=== PATIENT | female | born 1995 | race Caucasian/White ===

== ENCOUNTER 2018-06-08 16:22 | Inpatient (IN) | payer BC, OTHER ==
[~2018-06-08] VITALS: Ht 162.6 cm; Wt 63.5 kg
[2018-06-08] MEDS ORDERED: ONDANSETRON 4 MG/2 ML (SDV) Z0FRAN ONE (16:38)
--- NOTE | 2018-06-08 16:40 | ED GU-Female ---
General Stated Complaint: KIDNEY STONE Source: patient Exam Limitations: no limitations History of Present Illness Date Seen by Provider: Jun 08, 2018 Time Seen by Provider: 16:39 Initial Comments To ER with reports of left flank pain that awakened her from sleep at 4:30 AM this morning. Earlier this week she thought she might have a bladder infection because she was having urinary frequency and burning on urination. She began to drink more cranberry juice and those symptoms resolved. She did have a fever earlier today up to a maximum 99.7. No nausea or vomiting. She saw her primary care provider Shonda English who told her she may have a kidney stone and referred her here. She just left his office. Timing/Duration: just prior to arrival Severity/Quality: moderate Location: left flank Radiation: left flank Prior Genitourinary Problems: none Associated Symptoms: dysuria, urinary frequency Allergies and Home Medications Allergies Coded Allergies: No Known Drug Allergies (Unverified , 06/08/18) Home Medications No Active Prescriptions or Reported Meds Patient Home Medication List Home Medication List Reviewed: Yes Review of Systems Review of Systems Constitutional: see HPI, chills, fever EENTM: see HPI Respiratory: no symptoms reported Cardiovascular: no symptoms reported Genitourinary: see HPI, dysuria, flank pain Musculoskeletal: no symptoms reported Skin: no symptoms reported Psychiatric/Neurological: No Symptoms Reported Physical Exam Vital Signs Vital Signs - First Documented 06/08/18 06/08/18 16:38 19:40 Temp 97.9 Pulse 103 Resp 18 B/P (MAP) 114/68 (83) Pulse Ox 100 O2 Delivery Room Air Capillary Refill : Height, Weight, BMI Height: '" Weight: lbs. oz. kg; BMI Method: General Appearance: WD/WN, no apparent distress HEENT: PERRL/EOMI, normal ENT inspection Neck: non-tender, full range of motion Respiratory: no respiratory distress, no accessory muscle use Gastrointestinal: normal bowel sounds, non tender, soft Back: CVA tenderness (L) Extremities: normal range of motion, non-tender, normal inspection Neurologic/Psychiatric: alert, normal mood/affect, oriented x 3 Skin: normal color, warm/dry Focused Exam Lactate Level 06/08/18 17:29: Lactic Acid Level 1.93 Lactic Acid Level Progress/Results/Core Measures Suspected Sepsis SIRS Temperature: Pulse: Respiratory Rate: Laboratory Tests 06/08/18 16:30: White Blood Count 20.2H Blood Pressure / Mean: 06/08/18 17:29: Lactic Acid Level 1.93 Laboratory Tests 06/08/18 16:30: Creatinine 0.81, Platelet Count 182, Total Bilirubin 1.1H Results/Orders Lab Results Laboratory Tests Test 06/08/18 16:30 06/08/18 16:55 06/08/18 17:29 Range/Units White Blood Count 20.2 H 4.3-11.0 10^3/uL Red Blood Count 4.76 4.35-5.85 10^6/uL Hemoglobin 15.2 11.5-16.0 G/DL Hematocrit 43 35-52 % Mean Corpuscular Volume 90 80-99 FL Mean Corpuscular Hemoglobin 32 25-34 PG Mean Corpuscular Hemoglobin Concent 35 32-36 G/DL Red Cell Distribution Width 12.2 10.0-14.5 % Platelet Count 182 130-400 10^3/uL Mean Platelet Volume 10.0 7.4-10.4 FL Neutrophils (%) (Auto) 91 H 42-75 % Lymphocytes (%) (Auto) 3 L 12-44 % Monocytes (%) (Auto) 6 0-12 % Eosinophils (%) (Auto) 0 0-10 % Basophils (%) (Auto) 0 0-10 % Neutrophils # (Auto) 18.3 H 1.8-7.8 X 10^3 Lymphocytes # (Auto) 0.6 L 1.0-4.0 X 10^3 Monocytes # (Auto) 1.3 H 0.0-1.0 X 10^3 Eosinophils # (Auto) 0.0 0.0-0.3 10^3/uL Basophils # (Auto) 0.0 0.0-0.1 10^3/uL Neutrophils % (Manual) 82 % Lymphocytes % (Manual) 5 % Monocytes % (Manual) 6 % Eosinophils % (Manual) 0 % Basophils % (Manual) 0 % Band Neutrophils 7 % Blood Morphology Comment NORMAL Sodium Level 132 L 135-145 MMOL/L Potassium Level 4.0 3.6-5.0 MMOL/L Chloride Level 103 98-107 MMOL/L Carbon Dioxide Level 18 L 21-32 MMOL/L Anion Gap 11 5-14 MMOL/L Blood Urea Nitrogen 9 7-18 MG/DL Creatinine 0.81 0.60-1.30 MG/DL Estimat Glomerular Filtration Rate > 60 BUN/Creatinine Ratio 11 Glucose Level 136 H 70-105 MG/DL Calcium Level 9.1 8.5-10.1 MG/DL Corrected Calcium 8.8 8.5-10.1 MG/DL Total Bilirubin 1.1 H 0.1-1.0 MG/DL Aspartate Amino Transf (AST/SGOT) 20 5-34 U/L Alanine Aminotransferase (ALT/SGPT) 14 0-55 U/L Alkaline Phosphatase 67 40-136 U/L Total Protein 7.5 6.4-8.2 GM/DL Albumin 4.4 3.2-4.5 GM/DL Urine Color GALEN H Urine Clarity SLIGHTLY CLOUDY Urine pH 5 5-9 Urine Specific [place] 1.020 1.016-1.022 Urine Protein 2+ H NEGATIVE Urine Glucose (UA) NEGATIVE NEGATIVE Urine Ketones NEGATIVE NEGATIVE Urine Nitrite NEGATIVE NEGATIVE Urine Bilirubin NEGATIVE NEGATIVE Urine Urobilinogen NORMAL NORMAL MG/DL Urine Leukocyte Esterase 3+ H NEGATIVE Urine RBC (Auto) 5+ H NEGATIVE Urine RBC 5-10 H /HPF Urine WBC 50-100 H /HPF Urine Squamous Epithelial Cells 25-50 H /HPF Urine Crystals NONE /LPF Urine Bacteria FEW H /HPF Urine Casts NONE /LPF Urine Mucus NEGATIVE /LPF Urine Culture Indicated YES Lactic Acid Level 1.93 0.50-2.00 MMOL/L My Orders Orders - JUVENAL BALL APRN Ua Culture If Indicated (06/08/18 16:32) Cbc With Automated Diff (06/08/18 16:32) Comprehensive Metabolic Panel (06/08/18 16:32) Iv Heplock-Insert (Order) (06/08/18 16:32) Ct Abd/Pelvis Wo(Kidney Stone) (06/08/18 16:32) Ketorolac Injection (Toradol Injection) (06/08/18 16:45) Ns Iv 1000 Ml (Sodium Chloride 0.9%) (06/08/18 16:45) Urine Bedside (06/08/18 16:32) Ondansetron Injection (Zofran Injectio (06/08/18 16:45) Ondansetron Injection (Zofran Injectio (06/08/18 16:38) Manual Differential (06/08/18 16:30) Blood Culture (06/08/18 16:57) Lactic Acid Analyzer (06/08/18 16:57) Urine Culture (06/08/18 16:55) Ceftriaxone For Iv Use (Rocephin For I (06/08/18 17:30) Us Non Ob Pelvis Comp/Transvag (06/08/18 17:53) Medications Given in ED Current Medications Medications Dose Ordered Sig/Sofya Route Start Time Stop Time Status Last Admin Dose Admin Ceftriaxone Sodium 1000 mg/ Sodium Chloride 50 ml @ 100 mls/hr ONCE ONCE IV 06/08/18 17:30 06/08/18 17:59 DC 06/08/18 17:47 100 MLS/HR Ketorolac Tromethamine 30 mg ONCE ONCE IVP 06/08/18 16:45 06/08/18 16:46 DC 06/08/18 16:45 30 MG Ondansetron HCl 4 mg ONCE ONCE IVP 06/08/18 16:45 06/08/18 16:46 DC 06/08/18 16:45 4 MG Vital Signs/I&O 06/08/18 06/08/18 06/08/18 06/08/18 16:38 19:40 19:40 19:45 Temp 97.9 99.5 Pulse 103 88 98 Resp 18 18 18 B/P (MAP) 114/68 (83) 110/60 (83) 104/66 (79) Pulse Ox 100 100 98 O2 Delivery Room Air Room Air 06/08/18 21:38 Pulse 99 Capillary Refill : Diagnostic Imaging Diagonstic Imaging: Xray Comments NAME: KAYKAY HUA [facility] REC#: [id number] PT STATUS: REG ER : 1995 PHYSICIAN: JUVENAL BALL APRN ADMIT DATE: 06/08/18/ER Draft Date of Exam:06/08/18 CT ABD/PELVIS WO(KIDNEY STONE) PROCEDURE: CT urinary tract, rule out kidney stone. TECHNIQUE: Multiple contiguous axial images were obtained through the abdomen and pelvis without the use of intravenous contrast. INDICATION: Onset of left flank pain today, hematuria. CORRELATION STUDY: None. FINDINGS: LOWER THORAX: Clear. LIVER: Unremarkable. GALLBLADDER: Slightly contracted, otherwise unremarkable. SPLEEN: Unremarkable. PANCREAS: Unremarkable. ADRENAL GLANDS: Unremarkable. KIDNEYS: 3 cm rounded low-density mass in the inferior pole of the left kidney most compatible with a cyst. Kidneys and collecting systems are otherwise unremarkable. No definitive calcification. Ureters cannot be completely traced but without evidence of unexpected calcification along their course. ABDOMINAL AORTA: Appearing relatively normal in contour. There are few prominent central retroperitoneal and a few scattered mesenteric lymph nodes. GASTROINTESTINAL TRACT: Stomach is distended with moderate amount of retained gastric contents. No evidence for small bowel obstruction. Mild severity fecal retention throughout the colon. What appears to be portion of the appendix has an unremarkable appearance. URINARY BLADDER: Relatively decompressed not well evaluated. REPRODUCTIVE: There is presence of a small amount of pelvic fluid. Intrauterine contraceptive device is present. Low-density left adnexal mass measures 3.5 cm most compatible with a cyst. OSSEOUS STRUCTURES: There is either a left hemilaminotomy defect at the L5 level versus a spina bifida occulta defect with additional spina bifida occulta defect at S1. OTHER: None. IMPRESSION: 1. No findings to suggest nephroureterolithiasis or obstructive uropathy. 2. Probable left renal cyst. 3. Left adnexal cyst likely associated with left ovary. There is presence of pelvic fluid. Given the presenting symptoms and overall findings, pelvic sonogram would be recommended for further assessment and to document appropriate blood flow to the left ovary. Dictated on workstation # [id number] Dict: 06/08/18 1716 Trans: 06/08/18 1751 [id number] Interpreted by: VARSHA EATON DO Electronically signed by: Departure Communication (Admissions) Spoke with Dr. De La Torre. We will admit observation status Rocephin fluids and repeat labs in the morning. Impression Primary Impression: Pyelonephritis Additional Impression: Sepsis Disposition: 01 HOME, SELF-CARE Condition: Stable Admissions Decision to Admit Reason: Admit from ER (General) Decision to Admit/Date: Jun 08, 2018 Time/Decision to Admit Time: 22:37 Departure-Patient Inst. Scripts No Active Prescriptions or Reported Meds JUVENAL BALL APRN Jun 08, 2018 16:40
[2018-06-08 16:44] LABS: BASOPHILS % (AUTO) 0 % (0-10); EOSINOPHILS % (AUTO) 0 % (0-10); HEMATOCRIT 43 % (35-52); HEMOGLOBIN 15.2 G/DL (11.5-16.0); LYMPHOCYTES # (AUTO) 0.6 X 10^3 (1.0-4.0); LYMPHOCYTES % (AUTO) 3 % (12-44); MEAN CORPUSCULAR HEMOGLOBIN 32 PG (25-34); MEAN CORPUSCULAR HGB CONC 35 G/DL (32-36); MEAN CORPUSCULAR VOLUME 90 FL (80-99); MONOCYTES # (AUTO) 1.3 X 10^3 (0.0-1.0); MONOCYTES % (AUTO) 6 % (0-12); NEUTROPHILS # (AUTO) 18.3 X 10^3 (1.8-7.8); NEUTROPHILS % (AUTO) 91 % (42-75); PLATELET COUNT 182 10^3/uL (130-400); RED BLOOD COUNT 4.76 10^6/uL (4.35-5.85); RED CELL DISTRIBUTION WIDTH 12.2 % (10.0-14.5); WHITE BLOOD COUNT 20.2 10^3/uL (4.3-11.0)
[2018-06-08] MEDS ORDERED: ONDANSETRON 4 MG/2 ML (SDV) Z0FRAN IVP ONE (16:45)
[2018-06-08] MEDS ORDERED: KETOROLAC 30 MG/ML VIAL IVP ONE (16:45)
[2018-06-08] MEDS ORDERED: NS IV 1000 ML 1,000 ML IV SCH (16:45)
[2018-06-08 16:58] LABS: BAND NEUTROPHILS 7 %; BASOPHILS % (MANUAL) 0 %; EOSINOPHILS % (MANUAL) 0 %; LYMPHOCYTES % (MANUAL) 5 %; MONOCYTES % (MANUAL) 6 %; NEUTROPHILS % (MANUAL) 82 %; RBC MORPH NORMAL
[2018-06-08 17:04] LABS: ALANINE AMINOTRANSFERASE 14 U/L (0-55); ALBUMIN 4.4 GM/DL (3.2-4.5); ALKALINE PHOSPHATASE 67 U/L (40-136); BILIRUBIN,TOTAL 1.1 MG/DL (0.1-1.0); BUN/CREATININE RATIO 11; CALCIUM 9.1 MG/DL (8.5-10.1); CARBON DIOXIDE 18 MMOL/L (21-32); CHLORIDE 103 MMOL/L (98-107); CREATININE SERUM 0.81 MG/DL (0.60-1.30); GFR ESTIMATED > 60; GLUCOSE 136 MG/DL (70-105); SODIUM 132 MMOL/L (135-145); TOTAL PROTEIN 7.5 GM/DL (6.4-8.2)
[2018-06-08 17:11] LABS: BILIRUBIN,URINE NEGATIVE (NEGATIVE); CLARITY,URINE SLIGHTLY CLOUDY; COLOR,URINE AMBER; GLUCOSE, URINE (UA) NEGATIVE (NEGATIVE); KETONES,URINE NEGATIVE (NEGATIVE); LEUKOCYTE ESTERASE ,URINE 3+ (NEGATIVE); NITRITE,URINE NEGATIVE (NEGATIVE); PH,URINE 5 (5-9); PROTEIN,URINE 2+ (NEGATIVE); UROBILINOGEN,URINE NORMAL (NORMAL)
[2018-06-08 17:21] LABS: BACTERIA,URINE FEW /HPF; SQUAMOUS EPITHELIAL CELL,UR 25-50 /HPF; WBC,URINE 50-100 /HPF
[2018-06-08] MEDS ORDERED: cefTRIAXone FOR IV USE 1,000 MG in NS (IVPB) 50 ML IV ONE (17:30)
--- NOTE | 2018-06-08 17:51 | Diagnostic Imaging Report ---
PROCEDURE: CT urinary tract, rule out kidney stone. TECHNIQUE: Multiple contiguous axial images were obtained through the abdomen and pelvis without the use of intravenous contrast. INDICATION: Onset of left flank pain today, hematuria. CORRELATION STUDY: None. FINDINGS: LOWER THORAX: Clear. LIVER: Unremarkable. GALLBLADDER: Slightly contracted, otherwise unremarkable. SPLEEN: Unremarkable. PANCREAS: Unremarkable. ADRENAL GLANDS: Unremarkable. KIDNEYS: 3 cm rounded low-density mass in the inferior pole of the left kidney most compatible with a cyst. Kidneys and collecting systems are otherwise unremarkable. No definitive calcification. Ureters cannot be completely traced but without evidence of unexpected calcification along their course. ABDOMINAL AORTA: Appearing relatively normal in contour. There are few prominent central retroperitoneal and a few scattered mesenteric lymph nodes. GASTROINTESTINAL TRACT: Stomach is distended with moderate amount of retained gastric contents. No evidence for small bowel obstruction. Mild severity fecal retention throughout the colon. What appears to be portion of the appendix has an unremarkable appearance. URINARY BLADDER: Relatively decompressed not well evaluated. REPRODUCTIVE: There is presence of a small amount of pelvic fluid. Intrauterine contraceptive device is present. Low-density left adnexal mass measures 3.5 cm most compatible with a cyst. OSSEOUS STRUCTURES: There is either a left hemilaminectomy defect at the L5 level versus a spina bifida occulta defect with additional spina bifida occulta defect at S1. OTHER: None. IMPRESSION: 1. No findings to suggest nephroureterolithiasis or obstructive uropathy. 2. Probable left renal cyst. 3. Left adnexal cyst likely associated with left ovary. There is presence of pelvic fluid. Given the presenting symptoms and overall findings, pelvic sonogram would be recommended for further assessment and to document appropriate blood flow to the left ovary. Dictated by: Dictated on workstation # [id number]
--- NOTE | 2018-06-08 19:11 | Diagnostic Imaging Report ---
INDICATION: Left flank pain, hematuria. TECHNIQUE: Multiple real time spears scale sonographic images were obtained of the pelvis transabdominally and transvaginally. CORRELATION STUDY: None FINDINGS: UTERUS/ENDOMETRIUM: Uterus measures 7.8 x 4.9 x 3.4 cm. Endometrial thickness is 7 mm. Intrauterine contraceptive device is present. RIGHT OVARY: 3.3 x 2.6 x 1.7 cm. Unremarkable. No mass. Normal blood flow. LEFT OVARY: 5.9 x 3.5 x 4.2 cm. There is a hypoechoic septated complex cystic mass associated with the left ovary at 3.1 x 2.3 x 3.2 cm. Additional 19 mm perhaps paraovarian cyst present as well. Blood flow is demonstrated to the left ovary. There is presence of pelvic fluid. IMPRESSION: 1. Approximately 3 cm complex left ovarian cyst. This may be physiologic. However, would recommend followup evaluation be obtained after approximately 2-3 menstrual cycles unless symptoms persist and/or adversely change. Blood flow is demonstrated to the ovaries. Dictated by: Dictated on workstation # [id number]
[2018-06-08 19:45] VITALS: BP 104/66
[2018-06-08] MEDS ORDERED: KETOROLAC 30 MG/ML VIAL IV PRN (20:00)
[2018-06-08] MEDS ORDERED: CATHETER FLUSH 10 ML SYR IV PRN (20:00)
[2018-06-08] MEDS ORDERED: ONDANSETRON 4 MG/2 ML (SDV) Z0FRAN IV PRN (20:00)
[2018-06-08] MEDS: NS IV 1000 ML 1,000 ML IV SCH (21:06)
[2018-06-08] MEDS: ACETAMINOPHEN 325 MG TABLET PO PRN (23:18)
[2018-06-08 23:50] VITALS: BP 95/44
[2018-06-09 04:15] VITALS: BP 106/55
[2018-06-09 05:05] LABS: BASOPHILS % (AUTO) 0 % (0-10); EOSINOPHILS % (AUTO) 0 % (0-10); HEMATOCRIT 39 % (35-52); HEMOGLOBIN 14.2 G/DL (11.5-16.0); LYMPHOCYTES # (AUTO) 1.4 X 10^3 (1.0-4.0); LYMPHOCYTES % (AUTO) 9 % (12-44); MEAN CORPUSCULAR HEMOGLOBIN 33 PG (25-34); MEAN CORPUSCULAR HGB CONC 36 G/DL (32-36); MEAN CORPUSCULAR VOLUME 92 FL (80-99); MONOCYTES # (AUTO) 1.8 X 10^3 (0.0-1.0); MONOCYTES % (AUTO) 11 % (0-12); NEUTROPHILS # (AUTO) 13.3 X 10^3 (1.8-7.8); NEUTROPHILS % (AUTO) 80 % (42-75); PLATELET COUNT 158 10^3/uL (130-400); RED CELL DISTRIBUTION WIDTH 12.4 % (10.0-14.5); WHITE BLOOD COUNT 16.5 10^3/uL (4.3-11.0)
[2018-06-09] MEDS: NS IV 1000 ML 1,000 ML IV SCH ×3 (05:15→16:36)
[2018-06-09 08:00] VITALS: BP 107/55
[2018-06-09] MEDS: cefTRIAXone 1 GM/NS 50 ML IVPB IV SCH ×2 (08:19)
[2018-06-09] MEDS: ACETAMINOPHEN 325 MG TABLET PO PRN (08:20)
--- NOTE | 2018-06-09 09:06 | History & Physical-Hospitalist ---
History of Present Illness HPI/Chief Complaint Pt is a 23yoCF who presented to the ER with CC fo back pain. She states that for the past week she had felt like she had a UTI (dysuria and frequency) but was treating it with cranberry juice and lots of fluids. Yesterday her symptoms worsened with severe back pain that woke her from her sleep. She went to see her PCP in [place] who believed her to have a kidney stone so sent her to the ER for CT. She also prescribed her an antibiotic but patient came to the ER before filling it. She underwent CT of abdomen that showed no evidence of stones or pyelonephritis. Clinically though she had CVA tenderness and was found to meet sepsis criteria due to leukocytosis and tachycardia. This morning she reports feeling better but still having some back pain. 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 Source: patient Exam Limitations: no limitations Date Seen 06/09/18 Time Seen by Provider: 09:01 Attending Physician Morena Gonsalves MD PCP Referring Physician Date of Admission Jun 08, 2018 at 19:32 Home Medications & Allergies Home Medications Reviewed patient Home Medication Reconciliation performed by pharmacy medication reconciliations library acquisitions technician and/or nursing. Patients Allergies have been reviewed. Allergies Allergies Coded Allergies No Known Drug Allergies (Unverified06/08/18) Past Rsrmskf-Fynkha-Ypuvph Hx Past Med/Social Hx: Reviewed Nursing Past Med/Soc Hx Patient Social History Marrital Status: single Alcohol Use: Occasionally Uses Recreational Drug Use: No Smoking Status: Never a Smoker Physical Abuse Screen: No Sexual Abuse: No Recent Foreign Travel: No Contact w/other who traveled: No Recent Hopitalizations: No (DENIES HX) Recent Infectious Disease Expo: No Past Medical History Currently Using CPAP: No Currently Using BIPAP: No : No (MIRANA) Sexually Transmitted Disease: No HIV/AIDS: No Female Reproductive Disorders: Ovarian Cyst History of Blood Disorders: No Family History Reviewed Nursing Family Hx Review of Systems Constitutional: no symptoms reported EENTM: no symptoms reported Cardiovascular: no symptoms reported Gastrointestinal: abdominal pain, constipation; No diarrhea, No nausea, No vomiting Genitourinary: dysuria, frequency Musculoskeletal: back pain Skin: no symptoms reported Psychiatric/Neurological: No Symptoms Reported All Other Systems Reviewed Negative Unless Noted: Yes (Negative excepted noted.) Physical Exam Physical Exam Vital Signs Vital Signs - First Documented 06/08/18 06/08/18 16:38 19:40 Temp 97.9 Pulse 103 Resp 18 B/P (MAP) 114/68 (83) Pulse Ox 100 O2 Delivery Room Air Capillary Refill : Less Than 3 Seconds Height, Weight, BMI Height: 5'4.00" Weight: 140lbs. 0.0oz. [id number]; 24.0 BMI Method:Estimated General Appearance: No Apparent Distress, WD/WN HEENT: PERRL/EOMI, Moist Mucous Membranes Neck: Non Tender, Supple Respiratory: Lungs Clear, No Respiratory Distress Cardiovascular: Regular Rate, Rhythm, No Murmur Gastrointestinal: Normal Bowel Sounds, Non Tender, Soft Extremity: Normal Capillary Refill, No Calf Tenderness Neurologic/Psychiatric: Alert, Oriented x3, Normal Mood/Affect Skin: Normal Color, Warm/Dry Results Results/Procedures Labs Laboratory Tests 06/08/18 16:30 06/09/18 04:45 Patient resulted labs reviewed. Imaging: Reviewed Imaging Report Assessment/Plan Admission Diagnosis Sepsis Admission Status: Inpatient Order (span 2 midnights) Reason for Inpatient Admission: needs IV antibiotics to treat bacteremia Diagnosis/Problems Diagnosis/Problems (1) Sepsis Status: Acute Assessment & Plan: symptoms consistent with pyelonephritis Continue on Rocephin as clinically improving Await sensitivities Will need sensitivities back prior to DC in order to make sure on appropriate antibiotics before departure from country Leukocytosis improving Does not meet severe sepsis criteria Qualifiers: Sepsis type: Escherichia coli Qualified Codes: A41.51 - Sepsis due to Escherichia coli [e. coli] (2) Bacteremia Status: Acute Assessment & Plan: 1 tube with GNR Await ID and sensitivity (3) Pyelonephritis Status: Acute Assessment & Plan: Clinically diagnosed Continue antibiotics as above Clinical Quality Measures DVT/VTE Risk/Contraindication: Risk Factor Score Per Nursin RFS Level Per Nursing on Admit: 1=Low/No VTE PPX MORENA GONSALVES MD Jun 09, 2018 09:06
[2018-06-09 12:02] VITALS: BP 106/57
[2018-06-09 16:10] VITALS: BP 109/64
[2018-06-09 19:51] VITALS: BP 102/58
[2018-06-10] VITALS: BP 108/58
[2018-06-10] MEDS: ACETAMINOPHEN 325 MG TABLET PO PRN ×2 (01:12→08:44)
[2018-06-10 04:00] VITALS: BP 110/56
[2018-06-10] MEDS: NS IV 1000 ML 1,000 ML IV SCH (06:01)
[2018-06-10 06:29] LABS: BASOPHILS % (AUTO) 0 % (0-10); EOSINOPHILS % (AUTO) 0 % (0-10); HEMATOCRIT 37 % (35-52); HEMOGLOBIN 12.6 G/DL (11.5-16.0); LYMPHOCYTES # (AUTO) 1.3 X 10^3 (1.0-4.0); LYMPHOCYTES % (AUTO) 10 % (12-44); MEAN CORPUSCULAR HEMOGLOBIN 32 PG (25-34); MEAN CORPUSCULAR HGB CONC 35 G/DL (32-36); MEAN CORPUSCULAR VOLUME 92 FL (80-99); MEAN PLATELET VOLUME 10.2 FL (7.4-10.4); MONOCYTES # (AUTO) 1.4 X 10^3 (0.0-1.0); MONOCYTES % (AUTO) 11 % (0-12); NEUTROPHILS # (AUTO) 10.3 X 10^3 (1.8-7.8); NEUTROPHILS % (AUTO) 79 % (42-75); PLATELET COUNT 137 10^3/uL (130-400); RED BLOOD COUNT 3.96 10^6/uL (4.35-5.85); RED CELL DISTRIBUTION WIDTH 12.2 % (10.0-14.5)
[2018-06-10 06:57] LABS: BUN/CREATININE RATIO 8; CALCIUM 8.5 MG/DL (8.5-10.1); CARBON DIOXIDE 21 MMOL/L (21-32); CHLORIDE 108 MMOL/L (98-107); CREATININE SERUM 0.72 MG/DL (0.60-1.30); GFR ESTIMATED > 60; GLUCOSE 91 MG/DL (70-105); POTASSIUM 3.7 MMOL/L (3.6-5.0); SODIUM 136 MMOL/L (135-145)
[2018-06-10] MEDS: cefTRIAXone 1 GM/NS 50 ML IVPB IV SCH ×2 (08:41)
[2018-06-10 08:50] VITALS: BP 107/59
[2018-06-10] MEDS ORDERED: LACT1CAP62 PO (10:17)
[2018-06-10] MEDS ORDERED: AMOX500T2 PO (10:17)
--- NOTE | 2018-06-10 10:23 | Discharge Inst-Simple/Standard ---
Discharge Inst-Standard Discharge Medications New, Converted or Re-Newed RX: Transmitted to Pharmacy Patient Instructions/Follow Up Plan of Care/Instructions/FU: Please continue to take your antibiotic until the prescription is complete even if you feel better. Please take your probiotic with it to help prevent diarrhea. Activity as Tolerated: Yes Discharge Diet: No Restrictions Return to The Hospital For: Worsening fever or pain, confusion, chest pain, shortness of breath or if you are feeling worse. MORENA COREY MD Jun 10, 2018 10:23 am
--- NOTE | 2018-06-10 10:26 | Discharge Summary-Hospitalist ---
Diagnosis/Chief Complaint Date of Admission Jun 09, 2018 at 9:12 am Date of Discharge Discharge Date: Jun 10, 2018 Admission Diagnosis Sepsis Discharge Diagnosis (1) Sepsis Status: Acute Assessment & Plan: symptoms consistent with pyelonephritis Switch to Amoxil Awaited sensitivities prior to DC in order to make sure on appropriate antibiotics before departure from country Leukocytosis improving Does not meet severe sepsis criteria (2) Bacteremia Status: Acute Assessment & Plan: 1 tube with GNR Sensitivities as above (3) Pyelonephritis Status: Acute Assessment & Plan: Clinically diagnosed Continue antibiotics as above Discharge Summary Discharge Physical Exam Allergies: Coded Allergies: No Known Drug Allergies (Unverified , 06/08/18) Vitals & I&Os Vital Signs Date Time Temp Pulse Resp B/P (MAP) Pulse Ox O2 Delivery O2 Flow Rate FiO2 06/10/18 10:50 90 20 107/59 94 Room Air 06/10/18 09:56 98.0 General Appearance: No Apparent Distress, WD/WN Respiratory: Lungs Clear, No Respiratory Distress Cardiovascular: Regular Rate, Rhythm, No Murmur Hospital Course Pt was admitted for pyelonephritis and was found to be bacteremic with e coli. She was continued on Rocephin until sensitivities were back as she was improving clinically. She was discharged with Amoxil per sensitivities to complete a 14 day course. She is to follow up with her PCP prior to her planned trip out of country next week. Labs (last 24 hrs) Microbiology 06/08/18 Blood Culture - Preliminary, Resulted No growth 06/08/18 Urine Culture - Final, Complete Escherichia coli See Comments Patient resulted labs reviewed. Pending Labs Imaging: Reviewed Imaging Report Discussion & Recommendations Discharge Planning: <30 minutes discharge planning Discharge Home Medications: Active Scripts Active Probiotic (Lactobacillus Acidophilus) 1 Each Capsule 1 Each PO BID Amoxicillin 500 Mg Tablet 500 Mg PO BID Instructions to patient/family Please see electronic discharge instructions given to patient. Clinical Quality Measures DVT/VTE Risk/Contraindication: Risk Factor Score Per Nursin RFS Level Per Nursing on Admit: 1=Low/No VTE PPX Problem Qualifiers (1) Sepsis: Sepsis type: Escherichia coli Qualified Codes: A41.51 - Sepsis due to Escherichia coli [e. coli] MORENA COREY MD Jun 10, 2018 10:26
[2018-06-10 10:50] VITALS: BP 107/59
== END 2018-06-10 10:50 | disposition home or self-care (01) | DRG 872 ==
LOC: ER 16:23 → UNDOADMOB 19:32 → 4TH 19:32 → INTOOBSV 06-09 09:12 → OBSVTOIN 06-09 09:12 → UNDODISIN 06-10 10:50
PROVIDERS: ADMIT Family Medicine; ATTEND Family Medicine
DX: A41.51 Sepsis due to Escherichia coli [E. coli] (principal); N10 Acute pyelonephritis
CPT/HCPCS: 36415; 74176; 76830; 76856; 80048; 80053; 81000; 83605; 84703; 85007; 85025; 85027; 87040; 87077; 87088; 87186; 96361; 96374; 96375; G0378